=== PATIENT | female | born 1985 | race Caucasian/White ===

== ENCOUNTER 2020-08-29 15:53 | Emergency (ER) | payer OTHER, SELFPAY ==
[~2020-08-29] VITALS: Ht 165.1 cm; Wt 86.4 kg
[2020-08-29 17:05] VITALS: BP 145/79
[2020-08-29] MEDS ORDERED: METHOCARBAMOL 500 MG TABLET PO ONE (17:45)
[2020-08-29] MEDS ORDERED: KETOROLAC TROMETHAMINE 10 MG TABLET PO ONE (17:45)
== END 2020-08-29 17:58 | disposition home or self-care (01) ==
LOC: EMS 15:53
DX: R51.9 Headache, unspecified (principal); M54.2 Cervicalgia; V43.52XA Car driver injured in collision with other type car in traffic accident, initial encounter; Y93.89 Activity, other specified; Y92.488 Other paved roadways as the place of occurrence of the external cause; Y99.8 Other external cause status
CPT/HCPCS: 99283

== ENCOUNTER 2020-10-14 20:14 | Emergency (ER) | payer OTHER ==
[~2020-10-14] VITALS: Ht 165.1 cm; Wt 118.2 kg
[2020-10-14] MEDS ORDERED: [UNRECOGNIZED DRUG - CODE] PO (20:39)
[2020-10-14] MEDS ORDERED: KETOROLAC TROMETHAMINE 60 MG/2 ML VIAL IM ONE (22:30)
[2020-10-14] MEDS ORDERED: DEXAMETHASONE SOD PHOS 4 MG/ML VIAL IM ONE (22:30)
[2020-10-14 22:50] VITALS: BP 135/96
== END 2020-10-14 23:00 | disposition home or self-care (01) ==
LOC: EMS 21:37
DX: M54.41 Lumbago with sciatica, right side (principal)
CPT/HCPCS: 96372; 99284; J1100; J1885